=== PATIENT | female | born 1960 | race Caucasian/White ===

== ENCOUNTER → 2016-10-30 | Outpatient (CLI) | payer OTHER ==
[~2016-10-30] VITALS: Ht 170.2 cm; Wt 59.1 kg
[~2016-10-30] MED LIST: CENTRUM COMPLE1 EACH PO; COLACE50 MG PO; COUMADIN2.5 MG PO; COUMADIN5 MG PO; CYANOCOBAL-LEV1 EACH PO; ENOXAPARIN60 MG/0.6 SC; FOLIC ACID1 MG PO; HAIR SKIN NAIL1 EACH PO; IMITREX100 MG PO; IMITREX6 MG/0.5 M SC; IRON18 MG PO; LEUCOVORIN CALCI5 MG PO; LOVENOX60 MG/0.6 SQ; METHOTREXATE2.5 MG PO; MYCOSTATIN 100,60 ML PO; PLAQUENIL200 MG PO; PROTONIX40 MG PO; REMICADE10 MG/ML IV; TOPAMAX25 MG PO; TOPIRAMATE50 MG PO; VITAMIN B-125000 MC1 SL; [UNRECOGNIZED DRUG - OTHER] PO
== END | disposition home or self-care (01) ==
LOC: AMB 09:11
PROC: 0DJ08ZZ Inspection of Upper Intestinal Tract, Via Natural or Artificial Opening Endoscopic (ICD-10-PCS; principal; 2016-10-30)
DX: B37.81 Candidal esophagitis (principal); R13.10 Dysphagia, unspecified; I35.0 Nonrheumatic aortic (valve) stenosis; Z95.2 Presence of prosthetic heart valve; Z79.01 Long term (current) use of anticoagulants; G47.30 Sleep apnea, unspecified; M06.9 Rheumatoid arthritis, unspecified; Z79.899 Other long term (current) drug therapy; D50.9 Iron deficiency anemia, unspecified
CPT/HCPCS: J3010

== ENCOUNTER 2017-04-26 09:55 | Emergency (ER) | payer OTHER ==
[~2017-04-26] VITALS: Ht 170.2 cm; Wt 62.2 kg
[2017-04-26] MEDS ORDERED: NORCO 5/3251 TABLET PO (12:06)
[2017-04-26] MEDS ORDERED: TYLENOL WITH C1 EACH PO (12:18)
[2017-04-26 12:19] VITALS: BP 123/79
== END 2017-04-26 12:22 | disposition home or self-care (01) ==
LOC: EME 09:55
DX: S30.0XXA Contusion of lower back and pelvis, initial encounter (principal); W10.9XXA Fall (on) (from) unspecified stairs and steps, initial encounter
CPT/HCPCS: 72220; 99281; 99283